=== PATIENT | male | born 1970 | race Caucasian/White ===

== ENCOUNTER 2016-10-17 15:01 | Emergency (ER) | payer OTHER ==
[~2016-10-17 15:01] MED LIST: ALEVE220 MG PO; AMOXICILLIN500 MG PO; ATARAX,VISTARIL50 MG PO; CARBIDOPA/LEVOD1 TA1 PO; HYDROCODONE BIT1 T11 PO; KEFLEX500 MG PO; KLONOPIN0.5 MG PO; NEURONTIN100 MG PO; PERCOCET 325 MG1 TA6 PO; SILVADENE,SSD C50 GM PO; SUBOXONE 2 MG-01 TAB PO; SUBOXONE 8 MG-1 EACH SL; TYLENOL W/CODEI1 TA2 PO; ZOFRAN 4 MG ED2 TAB PO
[2016-10-17] MEDS ORDERED: SUBOXONE 12 MG1 EACH SL (15:05)
[2016-10-17] MEDS ORDERED: BENADRYL25 M2 PO (15:23)
== END 2016-10-17 15:36 | disposition home or self-care (01) ==
LOC: ED 15:01
DX: S60.561A Insect bite (nonvenomous) of right hand, initial encounter (principal); S60.562A Insect bite (nonvenomous) of left hand, initial encounter; Z79.899 Other long term (current) drug therapy; F17.200 Nicotine dependence, unspecified, uncomplicated; W57.XXXA Bitten or stung by nonvenomous insect and other nonvenomous arthropods, initial encounter; Y93.9 Activity, unspecified; Y92.9 Unspecified place or not applicable; Y99.9 Unspecified external cause status

== ENCOUNTER 2022-01-30 14:36 | Emergency (ER) | payer OTHER ==
[~2022-01-30] VITALS: Ht 177.8 cm; Wt 77.1 kg
[~2022-01-30 14:36] MED LIST changes: +BENADRYL25 M2 PO; +SUBOXONE 12 MG1 EACH SL
[2022-01-30 16:48] LABS: BASO # 0.1 10*3/uL (0.0-0.1); BASO % 0.7 % (0.0-1.0); EOS # 0.6 10*3/uL (0.0-0.4); EOS % 8.9 % (1.0-4.0); HEMATOCRIT 37.7 % (42.0-52.0); LYMPH # 1.4 10*3/uL (1.3-4.4); LYMPH % 19.9 % (27.0-41.0); MEAN CELL VOLUME 92.2 fl (80.0-94.0); MEAN CORPUSCULAR HGB 28.9 pg (27.0-31.0); MEAN CORPUSCULAR HGB CONC 31.3 g/dl (33.0-37.0); MEAN PLATELET VOLUME 9.2 fl (9.6-12.3); MONO # 0.4 10*3/uL (0.1-1.0); MONO % 4.9 % (3.0-9.0); NEUT # 4.7 10*3/uL (2.3-7.9); NEUT % 65.3 % (47.0-73.0); PLATELET COUNT AUTOMATED 282 10*3/uL (130-400); RED BLOOD COUNT 4.09 10*6/uL (4.50-5.90); RED CELL DISTRI WIDTH 14.6 % (0-14.5); WHITE BLOOD COUNT 7.2 10*3/uL (4.8-10.8)
[2022-01-30 16:59] LABS: ACT PARTIAL THROMBO TIME 27.1 SECONDS (20.0-32.1); INTERNATIONAL NORM RATIO 0.9 (2.0-3.5)
[2022-01-30 17:19] LABS: ALKALINE PHOSPHATASE 84 U/L (46-116); CHLORIDE 100 mmol/L (98-107); SGPT/ALT 16 U/L (10-49)
[2022-01-30 17:20] LABS: BUN 16 mg/dl (9-23); CREATININE 0.79 mg/dL (0.70-1.30); LIPASE 29 U/L (12-53); POTASSIUM 3.6 mmol/L (3.4-5.1); SODIUM 138 mmol/L (136-145); TOTAL PROTEIN 7.1 gm/dL (6.0-8.0)
[2022-01-30] MEDS ORDERED: PREDNISONE20 M1 PO (18:05)
[2022-01-30] MEDS ORDERED: COMBIVENT RESPIM4 GM INH (18:05)
== END 2022-01-30 18:23 | disposition home or self-care (01) ==
LOC: ED 14:36
PROVIDERS: Family Medicine
DX: B34.9 Viral infection, unspecified (principal); Z20.822 Contact with and (suspected) exposure to COVID-19; R06.2 Wheezing; F17.200 Nicotine dependence, unspecified, uncomplicated

== ENCOUNTER 2022-08-11 17:33 | Emergency (ER) | payer OTHER ==
[~2022-08-11] VITALS: Ht 177.8 cm; Wt 77.1 kg
[~2022-08-11 17:33] MED LIST changes: +COMBIVENT RESPIM4 GM INH; +PREDNISONE20 M1 PO
== END 2022-08-11 18:45 | disposition home or self-care (01) ==
LOC: ED 17:33
DX: M79.662 Pain in left lower leg (principal); F17.200 Nicotine dependence, unspecified, uncomplicated

== ENCOUNTER 2022-10-10 00:20 | Emergency (ER) | payer OTHER ==
[~2022-10-10] VITALS: Wt 77.1 kg
[2022-10-10] MEDS ORDERED: SUBOXONE 8 MG-1 EACH SL (00:22)
[2022-10-10 01:19] LABS: BASO # 0.1 10*3/uL (0.0-0.1); BASO % 0.7 % (0.0-1.0); EOS # 0.2 10*3/uL (0.0-0.4); EOS % 2.5 % (1.0-4.0); HEMATOCRIT 37.9 % (42.0-52.0); LYMPH # 1.6 10*3/uL (1.3-4.4); LYMPH % 20.9 % (27.0-41.0); MEAN CELL VOLUME 85.6 fl (80.0-94.0); MEAN CORPUSCULAR HGB 27.5 pg (27.0-31.0); MEAN CORPUSCULAR HGB CONC 32.2 g/dl (33.0-37.0); MONO # 0.5 10*3/uL (0.1-1.0); NEUT # 5.2 10*3/uL (2.3-7.9); NEUT % 68.2 % (47.0-73.0); PLATELET COUNT AUTOMATED 274 10*3/uL (130-400); RED BLOOD COUNT 4.43 10*6/uL (4.50-5.90); RED CELL DISTRI WIDTH 13.7 % (0-14.5); WHITE BLOOD COUNT 7.7 10*3/uL (4.8-10.8)
[2022-10-10 01:43] LABS: ALKALINE PHOSPHATASE 111 U/L (46-116); BUN 19 mg/dl (9-23); CHLORIDE 106 mmol/L (98-107); LIPASE 25 U/L (12-53); POTASSIUM 3.3 mmol/L (3.4-5.1); SGPT/ALT 34 U/L (10-49); TOTAL PROTEIN 7.2 gm/dL (6.0-8.0)
[2022-10-10 02:57] LABS: BILIRUBIN Negative (Negative); BLOOD Negative (Negative); CLARITY Clear (Clear); COLOR Dark Yellow (Yellow); GLUCOSE Negative (Negative); KETONE Trace (Negative); LEUKO ESTERASE Negative (Negative); NITRITE Negative (Negative); PH 5.5 (4.5-8.0); SPECIFIC GRAVITY >= 1.030 (1.001-1.030)
[2022-10-10 03:04] LABS: FINE GRANULAR CAST 0-2; MUCOUS 1+; RBC 0-2 rbc/hpf (0-2)
[2022-10-10 03:05] LABS: URINE AMPHETAMINES Positive (1000ng/ml); URINE BARBITURATES Negative (200ng/ml); URINE BENZODIAZEPINES Positive (200ng/ml); URINE CANNABINOIDS (THC) Negative (50ng/ml); URINE COCAINE Negative (300ng/ml); URINE METHADONE Negative (300ng/ml); URINE OPIATES Negative (300ng/ml); URINE PHENCYCLIDINE Negative (25ng/ml)
== END 2022-10-10 04:27 ==
LOC: ED 00:20
PROVIDERS: Emergency Medicine
DX: S01.511A Laceration without foreign body of lip, initial encounter (principal); Z79.899 Other long term (current) drug therapy; V89.2XXA Person injured in unspecified motor-vehicle accident, traffic, initial encounter; Y93.89 Activity, other specified; Y92.410 Unspecified street and highway as the place of occurrence of the external cause; Y99.8 Other external cause status

== ENCOUNTER → 2023-03-09 | Outpatient (CLI) | payer OTHER | END | disposition home or self-care (01) | LOC: LAB 13:53 | PROVIDERS: ATTEND Nurse Practitioner Family | DX: F11.20 Opioid dependence, uncomplicated (principal) ==

== ENCOUNTER 2023-03-23 19:24 | Emergency (ER) | payer OTHER | END 2023-03-23 19:47 | disposition left against medical advice (07) | LOC: ED 19:24 | DX: Z04.3 Encounter for examination and observation following other accident (principal); Z53.21 Procedure and treatment not carried out due to patient leaving prior to being seen by health care provider ==

== ENCOUNTER 2023-07-11 17:00 | Emergency (ER) | payer OTHER ==
[~2023-07-11] VITALS: Wt 77.1 kg
[2023-07-11 18:59] LABS: BASO # 0.1 10*3/uL (0.0-0.1); BASO % 0.5 % (0.0-1.0); EOS # 0.6 10*3/uL (0.0-0.4); EOS % 5.6 % (1.0-4.0); HEMATOCRIT 35.9 % (42.0-52.0); LYMPH # 1.9 10*3/uL (1.3-4.4); MEAN CELL VOLUME 90.7 fl (80.0-94.0); MEAN CORPUSCULAR HGB 28.3 pg (27.0-31.0); MEAN CORPUSCULAR HGB CONC 31.2 g/dl (33.0-37.0); MEAN PLATELET VOLUME 9.1 fl (9.6-12.3); MONO # 0.7 10*3/uL (0.1-1.0); MONO % 7.6 % (3.0-9.0); NEUT # 6.5 10*3/uL (2.3-7.9); NEUT % 67.1 % (47.0-73.0); PLATELET COUNT AUTOMATED 287 10*3/uL (130-400); RED BLOOD COUNT 3.96 10*6/uL (4.50-5.90); RED CELL DISTRI WIDTH 14.3 % (0-14.5); WHITE BLOOD COUNT 9.7 10*3/uL (4.8-10.8)
[2023-07-11] MEDS ORDERED: ACETAMINOPHEN 325 MG TAB PO ONE (19:00)
[2023-07-11 19:12] LABS: BUN 32 mg/dl (9-23); CHLORIDE 110 mmol/L (98-107); POTASSIUM 3.8 mmol/L (3.4-5.1)
[2023-07-11] MEDS ORDERED: VIBRAMYCIN100 MG PO (19:33)
== END 2023-07-11 21:30 | disposition home or self-care (01) ==
LOC: ED 17:00
PROVIDERS: Nurse Practitioner
DX: L02.811 Cutaneous abscess of head [any part, except face] (principal); F17.200 Nicotine dependence, unspecified, uncomplicated; Z79.899 Other long term (current) drug therapy